=== PATIENT | female | born 1965 | race Caucasian/White ===

== ENCOUNTER 2023-03-05 18:50 | Emergency (ER) | payer MEDICAID, SELFPAY ==
[2023-03-05 18:51] VITALS: BP 144/93; PULSE 83; RESP 18; TEMP 36.1; O2SAT 99
--- NOTE | 2023-03-05 19:16 | EDS_ITS ---
HPI History of Present Illness Chief Complaint: Edema Informant: patient Onset/Context/Timing Onset: Days (2 days) Context: Gradual Onset Narrative Narrative: Patient presents with 2-day history of bilateral feet swelling. She denies known injury. She states that her feet were so swollen and painful this morning she could not get up to walk and had to crawl around her apartment on her knees. She lives in [place]. She states she went to the hospital in [place] but there was a long wait for the emergency room so her nephew brought her up here to be seen. [facility] Medical History CVA (cerebral vascular accident) Diabetes High cholesterol Hypertension Hypothyroidism Myocardial infarction Allergy/AdvReac Type Severity Reaction Status Date / Time aspirin Allergy Anaphylaxis Verified 03/05/23 19:48 ciprofloxacin Allergy Hives Verified 03/05/23 19:48 diclofenac Allergy Hives Verified 03/05/23 19:48 diphenhydramine Allergy Hives Verified 03/05/23 19:48 furosemide Allergy Hives Verified 03/05/23 19:48 hydrocodone Allergy Hives Verified 03/05/23 19:48 ioversol Allergy Hives Verified 03/05/23 19:48 latex Allergy Anaphylaxis Verified 03/05/23 19:48 levofloxacin Allergy PT UNSURE Verified 03/05/23 19:48 OF REACTION Penicillins Allergy Anaphylaxis Verified 03/05/23 19:48 phenytoin Allergy PT UNSURE Verified 03/05/23 19:48 OF REACTION promethazine Allergy Hives Verified 03/05/23 19:48 propoxyphene Allergy PT UNSURE Verified 03/05/23 19:48 OF REACTION Social History Smoking Status: Current every day smoker tobacco type: cigarettes ROS ROS ED Constitutional Constitutional ED: Denies chills or fever(s) Eyes Eyes: Denies change in vision or discharge from eye(s) ENT ENT ED: Denies discharge from eye(s), rhinorrhea or sore throat Cardiovascular Cardiovascular: Denies chest pain or palpitations Respiratory/Chest Respiratory/Chest: Reports dyspnea and other Details: Wheezing ; Denies cough Gastrointestinal Gastrointestinal: Denies abdominal pain, nausea or vomiting Genitourinary Genitourinary ED: Denies dysuria Musculoskeletal Musculoskeletal: Reports extremity pain; Denies back pain Integumentary Denies Abrasions or rash Neurologic Neurologic: Denies headache(s) or weakness Psychiatric Psychiatric: Denies anxiety or depression Allergic/Immunologic Allergic/Immunologic ED: Denies lip swelling or urticaria EXAM Physical Exam Const Vital Signs: 03/05/23 18:51 03/05/23 19:21 03/05/23 19:52 Temperature 97 F L Temperature Source Temporal Pulse Rate 83 86 78 Respiratory Rate 18 20 H 16 Respiratory Pattern Normal Blood Pressure 144/93 H 125/98 H Blood Pressure Mean 110 107 Pulse Ox 99 94 Oxygen Delivery Method Room Air Positive well nourished and well developed General Appearance ED: well developed HEENT Reports normocephalic and head/scalp atraumatic Eyes PERRL and EOMs intact bilaterally Neck supple Chest Wall inspection of chest normal and palpation of chest normal Resp normal respiratory effort Resp Narrative: Expiratory wheezes Cardio regular rate and regular rhythm GI normal to inspection, nondistended, normoactive bowel sounds Palpation: soft Extremity Extremity Narrative: 2+ edema bilateral lower extremities. Distal pulses. Neuro oriented x3 and no sensory deficits noted Sensorium / Orientation: alert Motor Exam: strength 5/5 throughout Psych mental status grossly normal Skin no rashes or lesions noted MDM MDM MDM Narrative Medical decision making narrative: Patient placed on cardiac sonographer. DuoNeb treatment given secondary to wheezing. Chest x-ray obtained to evaluate for acute lung pathology, cardiac size, or mediastinal abnormality. Labwork obtained to evaluate for leukocytos is, anemia, and electrolyte derangement. EKG obtained to evaluate for cardiac arrhythmia/ischemia. Lab Data Attestation: I reviewed the patient's lab results. Labs: Laboratory Results - last 24 hr 03/05/23 03/05/23 03/05/23 19:40 19:40 19:40 WBC Cancelled Corrected WBC Cancelled RBC Cancelled Hgb Cancelled Hct Cancelled MCV Cancelled MCH Cancelled MCHC Cancelled RDW Std Deviation Cancelled RDW Coeff of Jan Cancelled Plt Count Cancelled MPV Cancelled Immature Gran % (Auto) Cancelled Neut % (Auto) Cancelled Lymph % (Auto) Cancelled Ellis % (Auto) Cancelled Eos % (Auto) Cancelled Baso % (Auto) Cancelled Absolute Neuts (auto) Cancelled Absolute Lymphs (auto) Cancelled Total Counted Cancelled Neutrophils % (Manual) Cancelled Band Neutrophils % Cancelled Lymphocytes % (Manual) Cancelled Monocytes % (Manual) Cancelled Eosinophils % (Manual) Cancelled Basophils % (Manual) Cancelled Metamyelocytes % Cancelled Myelocytes % Cancelled Promyelocytes % Cancelled Blast Cells % Cancelled Plasma Cell % (Manual) Cancelled Other Cells % Cancelled Nucleated RBC % Cancelled Nucleated RBCs/100 WBC Cancelled Differential Comment Cancelled Diff Path Review Cancelled Hypersegmented Neuts Cancelled Atypical Lymphocytes Cancelled Reactive Lymphocytes Cancelled Smudge Cells Cancelled Toxic Granulation Cancelled Toxic Vacuolation Cancelled Dohle Bodies Cancelled Zeinab Rods Cancelled Platelet Estimate Cancelled Plt Morphology Comment Cancelled RBC Morphology Cancelled Polychromasia Cancelled Hypochromasia Cancelled Poikilocytosis Cancelled Basophilic Stippling Cancelled Anisocytosis Cancelled Microcytosis Cancelled Macrocytosis Cancelled Spherocytes Cancelled Sickle Cells Cancelled Target Cells Cancelled Tear Drop Cells Cancelled Ovalocytes Cancelled Stomatocytes Cancelled [place] Bodies Cancelled [place] Cells Cancelled Bite Cells Cancelled Crenated Cell Cancelled Acanthocytes (Spur) Cancelled Rouleaux Cancelled Schistocytes Cancelled Sodium 136 Potassium 3.6 Chloride 108 H Carbon Dioxide 22.0 Anion Gap 6 BUN 8 Creatinine 0.88 Estim Creat Clear Calc 67.62 Est GFR (MDRD) Af Amer 85 Est GFR (MDRD) Non-Af 70 BUN/Creatinine Ratio 9.0 L Glucose 139 H Calcium 9.3 B-Natriuretic Peptide Cancelled 03/05/23 03/05/23 20:15 20:15 WBC 8.9 Corrected WBC RBC 4.48 Hgb 14.4 Hct 43.1 MCV 96.2 MCH 32.1 H MCHC 33.4 RDW Std Deviation 48.6 H RDW Coeff of Jan 13.5 Plt Count 147 L MPV 10.8 Immature Gran % (Auto) 0.100 Neut % (Auto) 35.0 L Lymph % (Auto) 55.9 H Ellis % (Auto) 5.6 Eos % (Auto) 2.8 Baso % (Auto) 0.6 Absolute Neuts (auto) 3.1 Absolute Lymphs (auto) 4.95 H Total Counted Neutrophils % (Manual) Band Neutrophils % Lymphocytes % (Manual) Monocytes % (Manual) Eosinophils % (Manual) Basophils % (Manual) Metamyelocytes % Myelocytes % Promyelocytes % Blast Cells % Plasma Cell % (Manual) Other Cells % Nucleated RBC % 0 Nucleated RBCs/100 WBC Differential Comment Diff Path Review Hypersegmented Neuts Atypical Lymphocytes Reactive Lymphocytes Smudge Cells Toxic Granulation Toxic Vacuolation Dohle Bodies Zeinab Rods Platelet Estimate Plt Morphology Comment RBC Morphology Polychromasia Hypochromasia Poikilocytosis Basophilic Stippling Anisocytosis Microcytosis Macrocytosis Spherocytes Sickle Cells Target Cells Tear Drop Cells Ovalocytes Stomatocytes [place] Bodies [place] Cells Bite Cells Crenated Cell Acanthocytes (Spur) Rouleaux Schistocytes Sodium Potassium Chloride Carbon Dioxide Anion Gap BUN Creatinine Estim Creat Clear Calc Est GFR (MDRD) Af Amer Est GFR (MDRD) Non-Af BUN/Creatinine Ratio Glucose Calcium B-Natriuretic Peptide 41.5 Radiography Chest X-Ray - ED: 1 View, Read by ED Physician, Normal, Heart, Lungs and Mediastinum Diagnostic Testing: Clinical Impression(s) from Imaging Studies Chest X-Ray 03/05/23 19:55 IMPRESSION: No definite acute or significant abnormality seen. Electronically Signed: Madhu Carreon MD at 20:09 EDT , EKG Initial EKG: Attestation: I personally reviewed and interpreted this EKG as follows: Interpretation: Sinus Rhythm (Sinus at 69 with first-degree AV block. No acute ischemia.) Treatment and Re-Evaluation :: CBC reveals normal white count at 8.9 with normal differential. Chemistry studies reveal normal renal function. BNP is normal at 41. Chest x-ray per my interpretation reveals no acute findings with no evidence of congestive heart failure. EKG is sinus with no acute ischemia. On repeat evaluation patient resting comfortably. Charanjit wrap were applied to her feet and we discussed appropriate feet elevation. She currently takes spironolactone 25 mg daily. I will have her double this for the next 3 days to try to remove extra fluid. She states that she is unable to take Lasix. She is to follow-up with her upper and bottom lacer hand. Discharge Plan Triage Chief Complaint: Edema Other Complaint: Lower Extremity Injury ED Provider: Darshana Denis Dx/Rx/DC Orders Clinical Impression: Edema Instructions: ED Peripheral Edema, Bilateral Primary Care Provider: Care Physician,No Primary Referrals: NOT,DEFINED [Non-Staff] - Activity Restrictions/Additional Instructions: Please double your spironolactone from 25 mg to 50 mg daily for the next 3 days. Elevate your feet above the level of your heart when able to help with swelling. Please follow-up with your upper and bottom lacer hand. Disposition Disposition: Home, Self Care
--- NOTE | 2023-03-05 19:16 | EKG12_ITS ---
Test Reason : DYSRHYTHMIA Blood Pressure : / mmHG Vent. Rate : 069 BPM Atrial Rate : 069 BPM P-R Int : 214 ms QRS Dur : 104 ms QT Int : 420 ms P-R-T Axes : 029 017 049 degrees QTc Int : 450 ms Sinus rhythm with 1st degree A-V block Nonspecific ST abnormality Abnormal ECG Confirmed by KEILA MENA, GLADIS ([id number]), assistant film editor GENNA WARD ([id number]) on 03/06/2023 9:10:02 AM Referred By: NATALIE Confirmed By:GLADIS PEDRAZA MD
[2023-03-05 19:21] VITALS: PULSE 86; RESP 20
[2023-03-05] MEDS: Ipratropium/Albuterol Sulfate 3 ML AMPUL.NEB INHALATION (19:21)
[2023-03-05 19:52] VITALS: BP 125/98; PULSE 78; RESP 16; O2SAT 94; BMI 36.8
--- NOTE | 2023-03-05 19:55 | RAD_ITS ---
STUDY: X-RAY CHEST REASON FOR EXAM: Female, 57 years old. sob TECHNIQUE: Single AP portable view of the chest. COMPARISON: None. FINDINGS: The lungs are clear and expanded. There is no demonstrated pleural abnormality. Normal size heart. Normal mediastinum and maribel. Normal visualized pulmonary arteries. Normal visualized aortic arch and descending thoracic aorta. There are diffuse degenerative changes of the visualized thoracic spine. Normal visualized ribs, clavicles, and shoulders. There is no demonstrated abnormality of the visualized soft tissue structures of the upper abdomen. RAD/Chest 1 View (Portable) IMPRESSION: No definite acute or significant abnormality seen. Electronically Signed: Madhu Carreon MD at 20:09 EDT ,
[2023-03-05 20:08] LABS: Anion Gap 6 (5-15); BUN 8 mg/dL (7-18); Calcium,Total 9.3 mg/dL (8.5-10.1); Chloride 108 mmol/L (98-107); Creatinine, Serum 0.88 mg/dL (0.55-1.02); EST Glomerular Filtration Rate 70 mL/min (>60); Est Glom Filt Rate - Afr Amer 85 mL/min (>60); Estimated Creatinine Clearance 67.62 ml/min; Glucose 139 mg/dL (74-106); Potassium 3.6 mmol/L (3.5-5.1); Sodium Level 136 mmol/L (136-145)
[2023-03-05 20:21] LABS: Absolute Lymphocyte Count 4.95 X10^3/uL (0.83-4.51); Absolute Neutrophil Count 3.1 X10^3/uL (2.0-7.7); Basophil# 0.05 X10^3/uL; Basophil% 0.6 % (0-1); Eosinophil# 0.25 X10^3/uL; Eosinophils% 2.8 % (0-5); Hematocrit 43.1 % (37-47); Hemoglobin 14.4 g/dL (12.0-15.0); Lymphocyte # 4.95 X10^3/ul (0.83-4.51); Lymphocyte % 55.9 % (19-41); Mean Corp Hgb Conc 33.4 g/dL (32-36); Mean Corpuscular Hgb 32.1 pg (27.0-32.0); Mean Corpuscular Volume 96.2 fL (81-99); Mean Platelet Vol. 10.8 fl (6.2-12.0); Monocyte% 5.6 % (0-10); NRBC Flagged by Analyzer 0 % (0-5); Neutrophil # 3.09 X10^3/uL (2.7-7.7); Platelet Count 147 K/mm3 (150-450); RBC Distribution Width CV 13.5 % (11.6-14.6); RBC Distribution Width SD 48.6 fl (35.1-43.9); Red Blood Count 4.48 M/mm3 (4.2-5.4); White Blood Count 8.9 K/mm3 (4.4-11.0)
[2023-03-05 20:59] LABS: BNP,B-Type NATRIURETIC PEPTIDE 41.5 pg/mL (0-100)
[2023-03-05 22:10] VITALS: BP 118/76
== END 2023-03-05 22:11 | disposition home or self-care (01) ==
PROVIDERS: Emergency Provider Emergency Medicine; Visit Provider Emergency Medicine
DX: R60.9 Edema, unspecified (principal); E11.9 Type 2 diabetes mellitus without complications; E78.00 Pure hypercholesterolemia, unspecified; F17.210 Nicotine dependence, cigarettes, uncomplicated; I10 Essential (primary) hypertension; I25.2 Old myocardial infarction; R06.2 Wheezing
CPT/HCPCS: 71045; 80048; 83880; 85025; 93005; 94640; 99284; A4216

== ENCOUNTER 2023-11-15 20:40 | Emergency (ER) | payer MEDICAID, SELFPAY ==
[2023-11-15 20:41] VITALS: BP 154/89; PULSE 79; RESP 16; TEMP 36.4; O2SAT 98; BMI 33.9
[2023-11-15] MEDS: Albuterol 2.5 MG/3 ML VIAL.NEB. INHALATION (21:18)
[2023-11-15] MEDS: Ipratropium/Albuterol Sulfate 3 ML AMPUL.NEB INHALATION (21:18)
[2023-11-15 21:23] VITALS: BP 137/89; PULSE 72; RESP 16; O2SAT 96
[2023-11-15 21:24] LABS: Absolute Neutrophil Count 4.7 X10^3/uL (2.0-7.7); Basophil# 0.06 X10^3/uL; Basophil% 0.6 % (0-1); Eosinophil# 0.24 X10^3/uL; Eosinophils% 2.3 % (0-5); Hematocrit 41.6 % (37-47); Hemoglobin 14.1 g/dL (12.0-15.0); Lymphocyte % 46.4 % (19-41); Mean Corp Hgb Conc 33.9 g/dL (32-36); Mean Corpuscular Hgb 31.8 pg (27.0-32.0); Mean Corpuscular Volume 93.9 fL (81-99); Mean Platelet Vol. 10.5 fl (6.2-12.0); Monocyte# 0.64 X10^3/uL; Monocyte% 6.1 % (0-10); NRBC Flagged by Analyzer 0 % (0-5); Neutrophil % 44.4 % (47-70); Platelet Count 126 K/mm3 (150-450); RBC Distribution Width CV 13.4 % (11.6-14.6); RBC Distribution Width SD 46.5 fl (35.1-43.9); Red Blood Count 4.43 M/mm3 (4.2-5.4); White Blood Count 10.6 K/mm3 (4.4-11.0)
--- NOTE | 2023-11-15 21:35 | EDS_ITS ---
HPI <IZABEL Jordan - Last Filed: 11/15/23 22:14> History of Present Illness Chief Complaint: Upper Extremity Injury Narrative Narrative: Patient presenting today with left upper back and shoulder pain that started yesterday and radiates to the left side of her chest. She reports that the pain, feels like a hot knife and is intermittent, it is worse when she lays on her back or moves her left arm. She reports a history of COPD and does have some shortness of breath at baseline that does not feel worse than usual. She denies any history of blood clots, recent surgery/procedures/travel/immobilization. She has been coughing more over the past few days than usual and thinks that she may have had a low-grade fever yesterday. She reports a history of CAD, CVA, diabetes mellitus, hypertension, and COPD. PFSH <IZABEL Jordan - Last Filed: 11/15/23 22:14> [facility] Medical History CVA (cerebral vascular accident) Diabetes High cholesterol Hypertension Hypothyroidism Myocardial infarction Home Medications acetaminophen 500 mg tablet 1,000 mg (2 x 500 mg) PO BID #20 tabs 11/15/23 [Rx Last Taken Unknown] benzonatate 100 mg capsule 100 mg PO TID PRN cough 7 days #21 caps 11/15/23 [Rx Last Taken Unknown] Allergy/AdvReac Type Severity Reaction Status Date / Time aspirin Allergy Anaphylaxis Verified 11/15/23 20:43 ciprofloxacin Allergy Hives Verified 11/15/23 20:43 diclofenac Allergy Hives Verified 11/15/23 20:43 diphenhydramine Allergy Hives Verified 11/15/23 20:43 furosemide Allergy Hives Verified 11/15/23 20:43 hydrocodone Allergy Hives Verified 11/15/23 20:43 ioversol Allergy Hives Verified 11/15/23 20:43 latex Allergy Anaphylaxis Verified 11/15/23 20:43 levofloxacin Allergy PT UNSURE Verified 11/15/23 20:43 OF REACTION Penicillins Allergy Anaphylaxis Verified 11/15/23 20:43 phenytoin Allergy PT UNSURE Verified 11/15/23 20:43 OF REACTION promethazine Allergy Hives Verified 11/15/23 20:43 propoxyphene Allergy PT UNSURE Verified 11/15/23 20:43 OF REACTION Social History Smoking Status: Current every day smoker tobacco type: cigarettes ROS <IZABEL Jordan - Last Filed: 11/15/23 22:14> ROS ED Constitutional Constitutional ED: Denies chills or fever(s) Cardiovascular Cardiovascular: Denies chest pain or palpitations Respiratory/Chest Respiratory/Chest: Reports cough and dyspnea on exertion Gastrointestinal Gastrointestinal: Denies abdominal pain, nausea or vomiting Musculoskeletal Musculoskeletal: Reports arthralgias and back pain Integumentary Denies rash Neurologic Neurologic: Denies paresthesias or weakness EXAM <IZABEL Jordan - Last Filed: 11/15/23 22:14> Physical Exam Const Vital Signs: 11/15/23 20:41 11/15/23 21:23 Temperature 97.6 F L Temperature Source Temporal Pulse Rate 79 72 Respiratory Rate 16 16 Blood Pressure 154/89 H 137/89 H Blood Pressure Mean 110 105 Pulse Ox 98 96 Oxygen Delivery Method Room Air Room Air Positive well nourished, well developed and no apparent distress General Appearance ED: well developed HEENT Reports normocephalic and head/scalp atraumatic Mouth ED: Yes moist mucous membranes normal Eyes PERRL and EOMs intact bilaterally Neck full ROM and supple Chest Wall inspection of chest normal Chest Narrative: Tenderness to palpation to the left side of patient's chest and left lateral rib cage. No rash, warmth, bruising, or crepitus. Resp normal respiratory effort Resp Narrative: Expiratory wheezes in all lung perez bilaterally. Cardio regular rate and regular rhythm GI soft to palpation, non-tender, non-distended and no masses Back/Spine normal ROM and normal to inspection Back/Spine Narrative: Tenderness along the left thoracic paraspinal muscles and left rhomboid muscles. Extremity normal to inspection and full ROM Extremity Narrative: Generalized pain palpation to the left shoulder, limited ROM to the left shoulder due to pain. Neuro oriented x3, CN's II-XII intact bilaterally, moves all extremities, no focal motor deficits and no sensory deficits noted Sensorium / Orientation: awake and alert Psych mental status grossly normal and thought process normal Skin no rashes or lesions noted and no wounds MDM <IZABEL Jordan - Last Filed: 11/15/23 22:14> MDM MDM Narrative Medical decision making narrative: Patient presenting with pain in her left upper back that radiates to her left chest. She is well-appearing and in no acute distress. Patient has tenderness to palpation to her left rhomboids, left thoracic paraspinal muscles, and left side of her chest. I do think that her symptoms are muscular in nature. Low suspicion for PE, Wells score of 0. She did report that she has been coughing more than usual over the past few days and has a history of COPD. Chest x-ray will be obtained to rule out pneumonia and other cardiopulmonary abnormality. She does have a history of CAD and reported concerns for her heart because of this history, labs and EKG will be obtained to rule out ACS. Labs overall are unremarkable aside from slight hypokalemia. Potassium replacement given. Chest x-ray and shoulder x-ray negative for any acute findings. She was given Tylenol here for pain. She will be given a prescription for Tylenol and requested a prescription for Tessalon Perles, this will be given. Encouraged follow-up with PCP. Return instructions given. She will be discharged home in stable condition. Lab Data Attestation: I reviewed the patient's lab results. Labs: Laboratory Results - last 24 hr 11/15/23 21:19 WBC 10.6 RBC 4.43 Hgb 14.1 Hct 41.6 MCV 93.9 MCH 31.8 MCHC 33.9 RDW Std Deviation 46.5 H RDW Coeff of Jan 13.4 Plt Count 126 L MPV 10.5 Immature Gran % (Auto) 0.200 Neut % (Auto) 44.4 L Lymph % (Auto) 46.4 H Jessamine % (Auto) 6.1 Eos % (Auto) 2.3 Baso % (Auto) 0.6 Absolute Neuts (auto) 4.7 Absolute Lymphs (auto) 4.90 H Nucleated RBC % 0 EKG Initial EKG: Comments: 69 bpm, normal sinus rhythm, no ST elevation, reviewed and interpreted by attending ED physician <Dr. Ryley Guo, DO - Last Filed: 11/15/23 23:26> [facility] Treatment and Re-Evaluation Narrative: I have personally performed a face to face assessment of the patient and have reviewed the KIRSTEN Note. I performed a substantive portion of the visit including all aspects of the following. My wolf findings include: History: Patient presents with left shoulder and left upper chest pain that has been getting worse over the past several days. Patient describes her pain as sharp and stabbing. Patient states it is worse with certain movements of her shoulder. Patient admits to some subjective fevers and chills. Patient also admits to a cough with some occasional white sputum production. Patient admits to some nausea and vomiting. Patient denies any diaphoresis. Patient denies any back or neck pain. Patient denies any trauma or injury. Exam: Vital signs are stable. Patient is afebrile. Patient is in no acute distress. Oral mucosa is pink and moist. Neck is supple. Trachea is midline. There is no JVD. Heart was regular rate and rhythm. Lungs are clear and equal bilaterally. There is good respiratory effort noted. Abdomen is soft. Bowel sounds are normal. There is no tenderness. Cranial nerves II through XII are intact. There are no focal motor or sensory deficits noted. Musculoskeletal exam reveals tenderness over the anterior aspect of the left shoulder and left upper chest. There is no bony crepitance or step-off noted. Range of motion was slightly limited in all motions of the left shoulder secondary to pain. Radial pulses are equal bilaterally. Medical Decision Making: Differential diagnosis includes cardiac dysrhythmia, cardiac ischemia, pneumonia, pneumothorax, and musculoskeletal pain. EKG will be obtained to assess for cardiac dysrhythmia and cardiac ischemia. Chest x-ray will be obtained to assess for pneumonia and pneumothorax. X-rays of the left shoulder will be obtained to assess for occult fracture. CBC will be obtained to assess for leukocytosis and anemia. Basic metabolic profile will be obtained to assess for electrolyte abnormality and renal function. High-sensitivity troponin will be obtained to assess for cardiac ischemia. EKG was obtained. On my independent interpretation, shows normal sinus rhythm with a rate of 69. CT interval, QRS interval, and QTc intervals were normal. A xis was normal. There are nonspecific ST-T wave changes noted. Portable chest x-ray was obtained. There is 1 view. On my independent interpretation, lung perez are clear. Bony thorax is normal. There is no cardiomegaly noted. There is no acute cardiopulmonary process. Radiologist also interpreted the x- ray and agrees. X-rays of the left shoulder were obtained. There are 2 views. On my independent interpretation, there is no acute fracture or dislocation noted. There are no degenerative changes noted. Radiologist also interpreted the x-rays and agrees. CBC was reviewed and showed slight thrombocytopenia of 126. The remainder was essentially within normal limits. Basic metabolic profile was reviewed. Potassium was slightly low at 3.0. Glucose was slightly elevated at 214. The remainder was within normal limits. High-sensitivity troponin was reviewed and was normal at 7. Patient was given a dose of oral potassium here. Patient has a HEART score of 3. Patient was advised that this is low risk for acute cardiac event. Patient was instructed to follow-up with her primary care physician in 5 to 7 days. Patient was instructed to take Tylenol or ibuprofen as needed for pain. Patient understood and was agreeable with the plan. All questions were answered. Discharge Plan Triage Chief Complaint: Upper Extremity Injury ED Midlevel Provider: Sandra Alvares ED Provider: Ryley Guo Dx/Rx/DC Orders Clinical Impression: Back strain, Left shoulder pain, COPD (chronic obstructive pulmonary disease) Instructions: ED Back Sprain/Strain, ED RICE Prescriptions: New benzonatate 100 mg capsule 100 mg PO TID PRN (Reason: cough) 7 Days Qty: 21 0RF acetaminophen 500 mg tablet 1,000 mg PO BID Qty: 20 0RF Primary Care Provider: Care Physician,No Primary Referrals: Care Physician,No Primary [Primary Care Provider] - Activity Restrictions/Additional Instructions: Please follow-up with your PCP in 5 to 7 days, return for any worsening of your symptoms. Disposition Disposition: Home, Self Care Discharge Date/Time: 11/15/23 22:19
[2023-11-15 21:41] LABS: Anion Gap 5 (5-15); BUN 11 mg/dL (7-18); BUN/Creat Ratio 13.5 RATIO (10-20); Chloride 110 mmol/L (98-107); Creatinine, Serum 0.81 mg/dL (0.55-1.02); EST Glomerular Filtration Rate 77 mL/min (>60); Est Glom Filt Rate - Afr Amer 93 mL/min (>60); Estimated Creatinine Clearance 90.21 ml/min; Glucose 214 mg/dL (74-106); Sodium Level 138 mmol/L (136-145); Troponin-I HS 7 pg/mL (3.0-54.0)
--- NOTE | 2023-11-15 21:48 | RAD_ITS ---
STUDY: X-RAY CHEST REASON FOR EXAM: Female, 58 years old. chest pain TECHNIQUE: Single AP portable view of the chest. COMPARISON: 03/05/2023. FINDINGS: The lungs are clear and expanded. There is no demonstrated pleural abnormality. Normal size heart. Normal mediastinum and maribel. Normal visualized pulmonary arteries. There is mild atherosclerotic calcification of the aortic arch . Normal visualized thoracic spine. Normal visualized ribs, clavicles, and shoulders. There is no demonstrated abnormality of the visualized soft tissue structures of the upper abdomen. RAD/Chest 1 View (Portable) IMPRESSION: Normal x-ray examination of the chest for age. Electronically Signed: Cyndee Joshi MD at 21:58 EST ,
--- NOTE | 2023-11-15 21:48 | RAD_ITS ---
STUDY: X-RAY - LEFT SHOULDER REASON FOR EXAM: Female, 58 years old. pain TECHNIQUE: 2 view(s) of the shoulder. COMPARISON: None. FINDINGS: Normal glenohumeral articulation. Normal acromioclavicular joint. Normal acromion. Normal humeral head and visualized proximal humerus. The soft tissue structures are unremarkable. There is no demonstrated fracture. Normal visualized pulmonary apex. RAD/Shoulder min 2 Views IMPRESSION: Unremarkable x-ray examination of the shoulder with no acute fracture or subluxation. Electronically Signed: Cyndee Joshi MD at 21:59 EST ,
[2023-11-15] MEDS: Potassium Chloride Oral Tablet 20 MEQ 40 MEQ PO (21:50)
[2023-11-15] MEDS: Acetaminophen 325 MG Tablet 650 MG PO (21:50)
[2023-11-15 22:12] VITALS: BP 117/76; PULSE 76; RESP 16; O2SAT 96
== END 2023-11-15 22:19 | disposition home or self-care (01) ==
PROVIDERS: Physician Assistant; Emergency Provider Emergency Medicine; Visit Provider Emergency Medicine
DX: S29.012A Strain of muscle and tendon of back wall of thorax, initial encounter (principal); J44.9 Chronic obstructive pulmonary disease, unspecified; E11.9 Type 2 diabetes mellitus without complications; E87.6 Hypokalemia; F17.210 Nicotine dependence, cigarettes, uncomplicated; M25.512 Pain in left shoulder; I25.10 Atherosclerotic heart disease of native coronary artery without angina pectoris; Z86.73 Personal history of transient ischemic attack (TIA), and cerebral infarction without residual deficits; I10 Essential (primary) hypertension; E78.00 Pure hypercholesterolemia, unspecified; I25.2 Old myocardial infarction
CPT/HCPCS: 71045; 73030; 80048; 84484; 85025; 93005; 94640; 99285

== ENCOUNTER 2024-04-14 00:35 | Emergency (ER) | payer MEDICAID, SELFPAY ==
[2024-04-14 00:37] VITALS: BP 136/85; PULSE 86; RESP 18; TEMP 37; O2SAT 96; BMI 36.1
--- NOTE | 2024-04-14 00:52 | EX.ED.VIS.EY ---
HPI History of Present Illness Chief Complaint: Eye Problem Informant: patient Onset/Context/Timing Location: Left Eye Onset: Days (2) Context: Gradual Onset (Awoke with symptoms) Timing: Continuous Associated Symptoms Associated Symptoms - Eyes: Burning, Crusting, Itching and Redness; Negative for Foreign body sensation or Photophobia History of injury: No Visual correction: None Narrative Narrative: Itching redness mild amount of discharge left eye couple days. Patient states she goes outside each night she woke up the other morning with the symptoms. Left eye is the only 1 affected. No recent URI symptoms. States she has a chronic ptosis in this eye that is no different but she had to pry it open because of some crusting the other morning. States when she uses [id number] Visine it helped temporarily until it wears off and then everything is back again. Has had no changes in her vision. [facility] Medical History CVA (cerebral vascular accident) Myocardial infarction Hypothyroidism High cholesterol Hypertension Diabetes Home Medications ?Medication ?Instructions ?Recorded ?Last Taken ?Type acetaminophen 500 mg tablet 1,000 mg (2 x 500 mg) PO BID #20 11/15/23 Unknown Rx tabs benzonatate 100 mg capsule 100 mg PO TID PRN cough 7 days #21 11/15/23 Unknown Rx caps albuterol sulfate 2.5 mg/3 mL 2.5 mg inhalation Q8 04/14/24 Unknown History (0.083 %) solution for nebulization benzonatate 200 mg capsule 200 mg PO DAILY 04/14/24 Unknown History cetirizine 10 mg tablet 10 mg PO DAILY 04/14/24 Unknown History cholecalciferol (vitamin D3) 125 250 mcg PO QWEEK 04/14/24 Unknown History mcg (5,000 unit) capsule ergocalciferol (vitamin D2) 1,250 1,250 mcg PO QMONTH 04/14/24 Unknown History mcg (50,000 unit) capsule ezetimibe 10 mg tablet 10 mg PO DAILY CHOLESTEROL 04/14/24 Unknown History fenofibrate nanocrystallized 145 145 mg PO QHS CHOLESTEROL 04/14/24 Unknown History mg tablet fluticasone propionate 50 1 spray intranasal DAILY 04/14/24 Unknown History mcg/actuation nasal spray,suspension glipizide 5 mg tablet 10 mg PO BID 04/14/24 Unknown History hydroxyzine pamoate 25 mg capsule 25 mg PO 4X/DAY 04/14/24 Unknown History insulin degludec 200 unit/mL (3 90 unit subcut 04/14/24 Unknown History mL) subcutaneous pen (Tresiba FlexTouch U-200 insulin) insulin lispro 100 unit/mL 7 unit subcut TID 04/14/24 Unknown History subcutaneous pen (Humalog KwikPen (U-100) Insulin) levothyroxine 75 mcg tablet 75 mcg PO DAILY 04/14/24 Unknown History losartan 100 mg tablet 100 mg PO DAILY 04/14/24 Unknown History mecobalamin-levomefolate 2 tab PO QHS DIABETIC NEUROPATHY 04/14/24 Unknown History calcium-pyridoxal phos 3 mg-35 mg-2 mg tablet (Foltanx) melatonin 3 mg tablet 12 mg PO QHS INSOMNIA 04/14/24 Unknown History mirtazapine 45 mg tablet 45 mg PO QHS DEPRESSION 04/14/24 Unknown History montelukast 10 mg tablet 10 mg PO DAILY 04/14/24 Unknown History bzobjmxf-jqreqdaxqv-domhzobc 3.5 1 applic ophthalmic (eye) TID #3.5 04/14/24 Unknown Rx mg-400 unit-10,000 unit/gram eye grams oint omeprazole 40 mg capsule,delayed 40 mg PO DAILY 04/14/24 Unknown History release paroxetine HCl 40 mg tablet 40 mg PO DAILY 04/14/24 Unknown History potassium bicarbonate-citric acid 0 ea PO 04/14/24 Unknown History 20 mEq effervescent tablet (Effer-K) potassium chloride 10 mEq 10 meq PO BID 04/14/24 Unknown History tablet,extended release ropinirole 8 mg tablet,extended 8 mg PO DAILY RESTLESS LEGS 04/14/24 Unknown History release 24 hr rosuvastatin 40 mg tablet 40 mg PO DAILY 04/14/24 Unknown History Allergy/AdvReac Type Severity Reaction Status Date / Time aspirin Allergy Anaphylaxis Verified 04/14/24 00:37 ciprofloxacin Allergy Hives Verified 04/14/24 00:37 diclofenac Allergy Hives Verified 04/14/24 00:37 diphenhydramine Allergy Hives Verified 04/14/24 00:37 furosemide Allergy Hives Verified 04/14/24 00:37 hydrocodone Allergy Hives Verified 04/14/24 00:37 ioversol Allergy Hives Verified 04/14/24 00:37 latex Allergy Anaphylaxis Verified 04/14/24 00:37 levofloxacin Allergy PT UNSURE Verified 04/14/24 00:37 OF REACTION Penicillins Allergy Anaphylaxis Verified 04/14/24 00:37 phenytoin Allergy PT UNSURE Verified 04/14/24 00:37 OF REACTION promethazine Allergy Hives Verified 04/14/24 00:37 propoxyphene Allergy PT UNSURE Verified 04/14/24 00:37 OF REACTION Social History Smoking Status: Light Smoker (<10/day) ROS ROS ED Constitutional Constitutional ED: Denies chills or fever(s) Eyes Eyes: Reports as per HPI ENT ENT ED: Denies ear pain, rhinorrhea or sore throat Integumentary Denies rash Neurologic Neurologic: Denies headache(s), paresthesias or weakness EXAM Physical Exam Const Vital Signs: 04/14/24 00:37 Temperature 98.6 F Temperature Source Temporal Pulse Rate 86 Respiratory Rate 18 Blood Pressure 136/85 H Blood Pressure Mean 102 Pulse Ox 96 Oxygen Delivery Method Room Air Positive well nourished and well developed General Appearance ED: well developed and NAD HEENT atraumatic; Negative for tenderness Mouth ED: Yes oral and palatal mucosa normal and Yes lips normal Mouth: oral and palatal mucosa normal and lips normal Eyes PERRL and EOMs intact bilaterally Eyes Narrative: Mild ptosis left eye, baseline per patient. There is bulbar and palpebral conjunctival injection that is relatively mild in the left eye compared with the right. There is no chemosis or eyelid swelling. There is no discharge. When stained with fluorescein and examined with slit lamp, the anterior chambers deep and quiet there is no visible cell or flare, there is no hyphema or hypopyon, and a negative Toma sign. There are a couple of very small nonulcerated spots in the mid cornea without any focal dye uptake. No corneal ulcers or foreign bodies visible. Improved discomfort after tetracaine. Neck no lymphadenopathy and supple Neuro oriented x3, CN's II-XII intact bilaterally and gait normal Sensorium / Orientation: alert Skin Lesions: no lesions Rashes: no rashes MDM MDM MDM Narrative Medical decision making narrative: Consistent with mild-appearing conjunctivitis, the differential includes allergic which I favor, viral, and bacterial etiologies. The small spot central cornea are very few and this is less likely to be acute keratitis in my judgment. Will provide her with some antibacterial ophthalmic ointment to help comfort the eye and cover against bacterial infection, but without active discharge and with inflammation that is relatively mild appearing I think it is less likely. Given ophthalmology to follow-up with of 1 week does not change anything. Visual acuities were normal. Discharge Plan Triage Chief Complaint: Eye Problem ED Provider: Tanner Cee Dx/Rx/DC Orders Clinical Impression: Acute conjunctivitis of left eye Instructions: ED Conjunctivitis, Nonspecific Prescriptions: New hwxgfoux-qdmugalixn-svwjpovoz 3.5-400-10,000 rc-bbpd-dnfj/g ointment 1 applic ophthalmic (eye) TID Qty: 3.5 0RF No Action benzonatate 100 mg capsule 100 mg PO TID PRN (Reason: cough) 7 Days Qty: 21 0RF acetaminophen 500 mg tablet 1,000 mg PO BID Qty: 20 0RF albuterol sulfate 2.5 mg /3 mL (0.083 %) solution for nebulization 2.5 mg inhalation Q8 benzonatate 200 mg capsule 200 mg PO DAILY cetirizine 10 mg tablet 10 mg PO DAILY cholecalciferol (vitamin D3) 125 mcg (5,000 unit) capsule 250 mcg PO QWEEK ergocalciferol (vitamin D2) 1,250 mcg (50,000 unit) capsule 1,250 mcg PO QMONTH fenofibrate nanocrystallized 145 mg tablet 145 mg PO QHS glipizide 5 mg tablet 10 mg PO BID ezetimibe 10 mg tablet 10 mg PO DAILY levothyroxine 75 mcg tablet 75 mcg PO DAILY losartan 100 mg tablet 100 mg PO DAILY fluticasone propionate 50 mcg/actuation spray,suspension 1 spray INTRANASAL DAILY hydroxyzine pamoate 25 mg capsule 25 mg PO 4X/DAY insulin lispro [Humalog KwikPen Insulin] 100 unit/mL insulin pen 7 unit subcut TID Foltanx 3-35-2 mg tablet 2 tab PO QHS insulin degludec [Tresiba FlexTouch U-200] 200 unit/mL (3 mL) insulin pen 90 unit subcut melatonin 3 mg tablet 12 mg PO QHS mirtazapine 45 mg tablet 45 mg PO QHS montelukast 10 mg tablet 10 mg PO DAILY potassium chloride 10 mEq tablet extended release 10 meq PO BID omeprazole 40 mg capsule,delayed release(DR/EC) 40 mg PO DAILY paroxetine HCl 40 mg tablet 40 mg PO DAILY rosuvastatin 40 mg tablet 40 mg PO DAILY Effer-K 20 mEq tablet, effervescent 0 ea PO ropinirole 8 mg tablet extended release 24 hr 8 mg PO DAILY Primary Care Provider: Care Physician,No Primary Referrals: Doc Amaya MD [Med Staff - Active Staff] - 1 Week if not improving Print Language: Yakut Disposition Disposition: Home, Self Care
[2024-04-14] MEDS: Tetracaine 0.5% Ophthalmic Bottle 1 DRP LEFT EYE (00:59)
[2024-04-14] MEDS: Fluorescein 1 MG STRIP 1 STRIP LEFT EYE (00:59)
[2024-04-14 01:10] VITALS: BP 125/74; PULSE 89; RESP 16; TEMP 36.6; O2SAT 97
== END 2024-04-14 01:16 | disposition home or self-care (01) ==
PROVIDERS: Emergency Provider Emergency Medicine; Visit Provider Emergency Medicine
DX: H10.32 Unspecified acute conjunctivitis, left eye (principal); E11.9 Type 2 diabetes mellitus without complications; Z79.4 Long term (current) use of insulin; E78.00 Pure hypercholesterolemia, unspecified; I10 Essential (primary) hypertension; F17.200 Nicotine dependence, unspecified, uncomplicated; Z86.73 Personal history of transient ischemic attack (TIA), and cerebral infarction without residual deficits; I25.2 Old myocardial infarction; Z79.84 Long term (current) use of oral hypoglycemic drugs; Z79.899 Other long term (current) drug therapy; E03.9 Hypothyroidism, unspecified
CPT/HCPCS: 99283